=== PATIENT | male | born 1995 | race Caucasian/White ===

== ENCOUNTER 2016-06-19 22:11 | Emergency (ER) | payer BC ==
[~2016-06-19] VITALS: Ht 185.4 cm; Wt 126.1 kg
[~2016-06-19 22:11] MED LIST: DEPAKOTE500 MG PO
[2016-06-19 23:26] LABS: MCH 29.4 PG (29.0-34.0); MCHC 34.4 G/DL (30.0-36.0); MCV 85.4 FL (86-99); MEAN PLAT.VOLUME 7.8 uM^3 (9.0-12.4); PLATELET COUNT 322 K/uL (156-360); RBC DIS.WIDTH-CV 12.7 % (11.8-14.6); RBC DIS.WIDTH-SD 39.2 % (39-53); WHITE BLOOD COUNT 4.8 K/uL (4.1-10.2)
[2016-06-19 23:36] LABS: CHLORIDE 106 mEq/L (99-109); POTASSIUM 3.9 mEq/L (3.7-5.4); SODIUM 141 mEq/L (136-147)
[2016-06-19 23:38] LABS: GLUCOSE 105 mg/dL (70-99)
[2016-06-19 23:39] LABS: ANION GAP 9 MEQ/L (2-14)
[2016-06-19 23:40] LABS: TOTAL BILIRUBIN 0.2 mg/dL (0.0-1.0)
[2016-06-19 23:41] LABS: ALKALINE PHOSPHATASE 88 IU/L (3-129)
[2016-06-19 23:42] LABS: GFR ESTIMATE (CALCULATED) > 59 mL/min/
[2016-06-19 23:43] LABS: DIRECT BILIRUBIN 0.1 mg/dL (0.0-0.3)
[2016-06-20 00:09] LABS: UREA NITROGEN (BUN) 16 mg/dL (9-23)
[2016-06-20] MEDS ORDERED: DEPAKOTE500 MG PO (00:27)
[2016-06-20 00:44] VITALS: BP 145/86
== END 2016-06-20 00:49 | disposition home or self-care (01) ==
LOC: EME 22:11
PROVIDERS: Physician Assistant
DX: G40.909 Epilepsy, unspecified, not intractable, without status epilepticus (principal); Z91.14 Patient's other noncompliance with medication regimen; R05 Cough
CPT/HCPCS: 80048; 80076; 85027; 99281; 99285

== ENCOUNTER 2016-12-03 08:23 | Emergency (ER) | payer BC ==
[~2016-12-03] VITALS: Ht 190.5 cm; Wt 129.0 kg
[2016-12-03] MEDS ORDERED: DEPAKOTE500 MG PO (09:19)
[2016-12-03 09:59] VITALS: BP 130/74
== END 2016-12-03 10:01 | disposition home or self-care (01) ==
LOC: EME 08:23
DX: G40.909 Epilepsy, unspecified, not intractable, without status epilepticus (principal); Z91.14 Patient's other noncompliance with medication regimen; Z73.3 Stress, not elsewhere classified; R42 Dizziness and giddiness
CPT/HCPCS: 99281; 99284

== ENCOUNTER 2017-01-30 14:48 | Emergency (ER) | payer BC | END 2017-01-30 15:04 | disposition left against medical advice (07) | LOC: EME 14:48 | DX: Z02.89 Encounter for other administrative examinations (principal); Z53.21 Procedure and treatment not carried out due to patient leaving prior to being seen by health care provider ==

== ENCOUNTER 2017-09-21 01:21 | Emergency (ER) | payer BC ==
[~2017-09-21] VITALS: Ht 185.4 cm; Wt 135.7 kg
[2017-09-21 02:00] LABS: HEMATOCRIT 42.6 % (38.0-50.0); MCH 30.4 PG (29.0-34.0); MCHC 35.2 G/DL (30.0-36.0); MCV 86.2 FL (86-99); PLATELET COUNT 289 K/uL (156-360); RBC DIS.WIDTH-CV 11.9 % (11.8-14.6); RBC DIS.WIDTH-SD 37.9 % (39-53); RED BLOOD COUNT 4.94 M/uL (4.00-5.50); WHITE BLOOD COUNT 7.3 K/uL (4.1-10.2)
[2017-09-21 02:10] LABS: CHLORIDE 101 mEq/L (99-109); POTASSIUM 4.3 mEq/L (3.7-5.4); SODIUM 138 mEq/L (136-147)
[2017-09-21 02:11] LABS: GLUCOSE 106 mg/dL (70-99)
[2017-09-21 02:15] LABS: CREATININE 1.2 mg/dL (0.6-1.3); GFR ESTIMATE (CALCULATED) > 59 mL/min/ (58.99-99999)
[2017-09-21 02:16] LABS: UREA NITROGEN (BUN) 16 mg/dL (9-23)
[2017-09-21 03:02] LABS: CREATINE KINASE 433 IU/L (1-294)
[2017-09-21 03:23] LABS: VALPROIC ACID (DEPAKOTE) 60.2 MCG/ML (50-100)
[2017-09-21] MEDS ORDERED: ATIVAN1 MG PO (03:51)
[2017-09-21 04:34] VITALS: BP 119/72
== END 2017-09-21 04:37 | disposition home or self-care (01) ==
LOC: EME 01:21
DX: G47.00 Insomnia, unspecified (principal); G40.909 Epilepsy, unspecified, not intractable, without status epilepticus; G43.909 Migraine, unspecified, not intractable, without status migrainosus; G93.5 Compression of brain; Z88.8 Allergy status to other drugs, medicaments and biological substances
CPT/HCPCS: 71046; 80048; 80164; 82550; 85027; 93005; 99281; 99285